=== PATIENT | female | born 1940 | race Caucasian/White ===

== ENCOUNTER → 2018-05-24 | Outpatient (CLI) | payer MEDICARE, BC ==
[2018-05-24 11:31] LABS: ABSOLUTE BASOPHILS 0.1 thou/uL (0.0-0.2); ABSOLUTE EOSINOPHILS 0.1 thou/uL (0.0-0.7); ABSOLUTE LYMPHOCYTES 2.2 thou/uL (0.8-5.3); ABSOLUTE MONOCYTES 0.4 thou/uL (0.0-1.2); ABSOLUTE NEUTROPHILS 4.1 thou/uL (1.6-8.1); BASOPHILS 1.5 %; EOSINOPHILS 1.8 %; HEMATOCRIT 45.7 % (37.0-47.0); HEMOGLOBIN 15.1 gm/dL (12.0-15.0); MCH 31.5 pg (26.0-34.0); MCHC 33.2 g/dL (28.0-37.0); MCV 94.9 fL (80.0-100.0); MONOCYTES 6.1 %; MPV 7.7 fl. (7.2-11.1); NUCLEATED RBCS 0 /100WBC; PLATELET COUNT* 257 thou/uL (150-400); POLYS 58.6 %; RBC 4.81 mil/uL (4.20-5.00); RDW-CV 13.1 % (10.5-14.5)
[2018-05-24 11:52] LABS: URINE BILIRUBIN NEGATIVE (Negative); URINE BLOOD 1+ (Negative); URINE CLARITY CLEAR; URINE COLOR YELLOW; URINE GLUCOSE-RANDOM NEGATIVE (Negative); URINE KETONES 1+ (Negative); URINE LEUKOCYTES-REFLEX TRACE (Negative); URINE PROTEIN NEGATIVE (Negative); URINE UROBILINOGEN 0.2 E.U./dl (0.2-1.0)
[2018-05-24 11:53] LABS: URINE NITRITE-REFLEX POSITIVE (Negative)
[2018-05-24 11:56] LABS: ALBUMIN 3.6 g/dL (3.4-5.0); ALKALINE PHOSPHATASE 55 U/L (46-116); ANION GAP 7 mmol/L (7-16); BUN 16 mg/dL (7-18); CALCIUM 10.1 mg/dL (8.5-10.1); CHLORIDE 106 mmol/L (98-107); CHOLESTEROL 175 mg/dL (<200); CO2 28 mmol/L (21-32); CREATININE 0.7 mg/dL (0.6-1.3); GLUCOSE 99 mg/dL (70-99); HDL CHOLESTEROL 82 mg/dL (>40); LDL CHOLESTEROL 73 mg/dL (<100); POTASSIUM 4.7 mmol/L (3.5-5.1); SERUM ASSESSMENT Clear; SGOT 27 U/L (15-37); SGPT 41 U/L (30-65); SODIUM 141 mmol/L (136-145); TC:HDL 2.1 Ratio (Not establshd); TOTAL BILIRUBIN 0.6 mg/dL (<0.1-1.0); TRIGLYCERIDE 101 mg/dL (<150); VLDL 20 mg/dL (<40)
[2018-05-24 12:08] LABS: SQUAMOUS 0-3 Few /LPF (0-3)
[2018-05-24 12:09] LABS: BACTERIA-REFLEX >30 Many /HPF (None Seen); CASTS None Seen /LPF (None Seen); CRYSTALS None Seen /LPF (None Seen); MUCUS 0-3 Light strn/LPF (None Seen); URINE RBC 0-2 Rare /HPF (0-2); URINE WBC-REFLEX 0-5 Rare /HPF (0-5)
== END ==
LOC: M.LAB 10:45
PROVIDERS: Internal Medicine
DX: E03.9 Hypothyroidism, unspecified (principal); E78.01 Familial hypercholesterolemia

== ENCOUNTER → 2018-08-31 | Outpatient (CLI) | payer MEDICARE, BC ==
[2018-08-31 14:28] LABS: SGOT 12 U/L (15-37); SGPT 14 U/L (30-65)
[2018-09-01 06:05] LABS: LDL (DIRECT) CHOL 67 mg/dL (0-99)
== END ==
LOC: M.LAB 13:43
PROVIDERS: Internal Medicine
DX: E78.01 Familial hypercholesterolemia (principal)

== ENCOUNTER → 2018-09-01 | Outpatient (CLI) | payer MEDICARE, BC ==
[2018-09-01 15:48] LABS: URINE BILIRUBIN NEGATIVE (Negative); URINE BLOOD 1+ (Negative); URINE CLARITY CLEAR; URINE COLOR YELLOW; URINE GLUCOSE-RANDOM NEGATIVE (Negative); URINE KETONES NEGATIVE (Negative); URINE LEUKOCYTES-REFLEX 1+ (Negative); URINE NITRITE-REFLEX NEGATIVE (Negative); URINE PROTEIN NEGATIVE (Negative); URINE SPECIFIC GRAVITY 1.025 (1.005-1.030); URINE UROBILINOGEN 0.2 E.U./dl (0.2-1.0)
[2018-09-01 15:57] LABS: BACTERIA-REFLEX >30 Many /HPF (None Seen); CASTS None Seen /LPF (None Seen); CRYSTALS None Seen /LPF (None Seen); MUCUS 4-6 Moderate strn/LPF (None Seen); SQUAMOUS 4-10 Moderate /LPF (0-3); URINE RBC 0-2 Rare /HPF (0-2); URINE WBC-REFLEX >25 Many /HPF (0-5)
== END ==
LOC: M.LAB 15:33
PROVIDERS: Internal Medicine
DX: N39.0 Urinary tract infection, site not specified (principal); E78.01 Familial hypercholesterolemia

== ENCOUNTER → 2018-09-30 | Outpatient (CLI) | payer MEDICARE, BC ==
[2018-09-30 14:48] LABS: URINE BILIRUBIN NEGATIVE (Negative); URINE BLOOD NEGATIVE (Negative); URINE CLARITY SL CLOUDY; URINE COLOR YELLOW; URINE GLUCOSE-RANDOM NEGATIVE (Negative); URINE KETONES NEGATIVE (Negative); URINE LEUKOCYTES-REFLEX NEGATIVE (Negative); URINE NITRITE-REFLEX NEGATIVE (Negative); URINE PROTEIN NEGATIVE (Negative); URINE SPECIFIC GRAVITY 1.025 (1.005-1.030); URINE UROBILINOGEN 0.2 E.U./dl (0.2-1.0)
[2018-09-30 14:57] LABS: BACTERIA-REFLEX >30 Many /HPF (None Seen); SQUAMOUS 0-3 Few /LPF (0-3); URINE RBC None Seen /HPF (0-2); URINE WBC-REFLEX >25 Many /HPF (0-5)
[2018-09-30 14:58] LABS: CASTS None Seen /LPF (None Seen); CRYSTALS None Seen /LPF (None Seen); MUCUS None Seen strn/LPF (None Seen)
== END ==
LOC: M.LAB 14:14
PROVIDERS: Internal Medicine
DX: N39.0 Urinary tract infection, site not specified (principal)

== ENCOUNTER → 2018-12-05 | Outpatient (CLI) | payer MEDICARE, BC ==
[2018-12-05 11:42] LABS: URINE BILIRUBIN NEGATIVE (Negative); URINE BLOOD TRACE (Negative); URINE CLARITY CLEAR; URINE COLOR YELLOW; URINE GLUCOSE-RANDOM NEGATIVE (Negative); URINE KETONES 1+ (Negative); URINE LEUKOCYTES-REFLEX NEGATIVE (Negative); URINE NITRITE-REFLEX NEGATIVE (Negative); URINE PROTEIN NEGATIVE (Negative); URINE SPECIFIC GRAVITY 1.025 (1.005-1.030); URINE UROBILINOGEN 0.2 E.U./dl (0.2-1.0)
[2018-12-05 12:20] LABS: CHOLESTEROL 173 mg/dL (<200); HDL CHOLESTEROL 84 mg/dL (>40); LDL CHOLESTEROL 71 mg/dL (<100); SERUM ASSESSMENT Clear; TC:HDL 2.1 Ratio (Not establshd); TRIGLYCERIDE 94 mg/dL (<150); VLDL 19 mg/dL (<40)
== END ==
LOC: M.LAB 11:20
PROVIDERS: Internal Medicine
DX: E78.01 Familial hypercholesterolemia (principal)

== ENCOUNTER 2018-12-07 14:59 | Observation (INO) | payer MEDICARE, BC ==
[~2018-12-07] VITALS: Ht 162.6 cm; Wt 63.5 kg
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
[2018-12-07 15:24] LABS: ABSOLUTE BASOPHILS 0.1 thou/uL (0.0-0.2); ABSOLUTE EOSINOPHILS 0.2 thou/uL (0.0-0.7); ABSOLUTE LYMPHOCYTES 3.4 thou/uL (0.8-5.3); ABSOLUTE MONOCYTES 0.6 thou/uL (0.0-1.2); ABSOLUTE NEUTROPHILS 4.3 thou/uL (1.6-8.1); BASOPHILS 1.1 %; EOSINOPHILS 2.4 %; HEMATOCRIT 46.4 % (37.0-47.0); HEMOGLOBIN 15.3 gm/dL (12.0-15.0); LYMPHOCYTES 39.7 %; MCH 30.7 pg (26.0-34.0); MCHC 32.9 g/dL (28.0-37.0); MCV 93.2 fL (80.0-100.0); MONOCYTES 6.6 %; NUCLEATED RBCS 0 /100WBC; PLATELET COUNT* 271 thou/uL (150-400); POLYS 50.2 %; RBC 4.98 mil/uL (4.20-5.00); WBC 8.5 thou/uL (4.0-11.0)
[2018-12-07 15:39] LABS: POC CA IONIZED 5.4 mg/dL (4.5-5.3); POC CREATININE 0.7 mg/dL (0.6-1.3); POC HEMOGLOBIN 15.6 g/dL (12.0-17.0); POC POTASSIUM 3.7 mmol/L (3.5-4.9)
[2018-12-07 15:42] LABS: PROTIME 10.2 Seconds (9.20-11.50)
[2018-12-07 15:46] LABS: ANION GAP 9 mmol/L (7-16); BUN 16 mg/dL (7-18); CALCIUM 10.4 mg/dL (8.5-10.1); CHLORIDE 104 mmol/L (98-107); CO2 27 mmol/L (21-32); CREATININE 0.8 mg/dL (0.6-1.3); GLUCOSE 117 mg/dL (70-99); POTASSIUM 3.8 mmol/L (3.5-5.1); SODIUM 140 mmol/L (136-145)
[2018-12-07 15:51] LABS: ALBUMIN 3.8 g/dL (3.4-5.0); ALKALINE PHOSPHATASE 70 U/L (46-116); NT-PRO BRAIN NAT PEPTIDE 234 pg/mL (<300); SGOT 22 U/L (15-37); SGPT 22 U/L (30-65); TOTAL BILIRUBIN 0.4 mg/dL (<0.1-1.0); TOTAL PROTEIN 7.3 g/dL (6.4-8.2); TROPONIN-I LEVEL <0.06 ng/mL (<0.06)
[2018-12-07 16:05] LABS: URINE BILIRUBIN NEGATIVE (Negative); URINE BLOOD TRACE (Negative); URINE CLARITY CLEAR; URINE COLOR YELLOW; URINE GLUCOSE-RANDOM NEGATIVE (Negative); URINE KETONES NEGATIVE (Negative); URINE LEUKOCYTES-REFLEX TRACE (Negative); URINE NITRITE-REFLEX NEGATIVE (Negative); URINE PROTEIN NEGATIVE (Negative); URINE SPECIFIC GRAVITY <= 1.005 (1.005-1.030); URINE UROBILINOGEN 0.2 E.U./dl (0.2-1.0)
[2018-12-07] MEDS ORDERED: ZOCOR20 MG PO (16:11)
[2018-12-07] MEDS ORDERED: CHILDREN'S ASPI81 M1 PO (16:11)
[2018-12-07] MEDS ORDERED: CALCIUM 600 +1 EAC1 PO (16:12)
[2018-12-07] MEDS ORDERED: SYNTHROID100 MC1 PO (16:12)
[2018-12-07] MEDS ORDERED: FOLBIC RF TABL1 EACH PO (16:12)
[2018-12-07] MEDS ORDERED: UNICOMPLEX M TA1 TA1 PO (16:12)
[2018-12-07] MEDS ORDERED: ESTRADIOL 1 MG T1 M1 PO (16:12)
[2018-12-07] MEDS ORDERED: CO Q-10100 MG PO (16:13)
[2018-12-07 16:16] LABS: MUCUS None Seen strn/LPF (None Seen); SQUAMOUS >10 Many /LPF (0-3)
[2018-12-07 16:17] LABS: CASTS None Seen /LPF (None Seen); CRYSTALS None Seen /LPF (None Seen); URINE RBC 0-2 Rare /HPF (0-2); URINE WBC-REFLEX 0-5 Rare /HPF (0-5)
[2018-12-07 20:00] VITALS: BP 145/60
[2018-12-07 21:00] VITALS: BP 108/51
[2018-12-07] MEDS ORDERED: CALCIUM500 MG PO (22:58)
[2018-12-07] MEDS ORDERED: VITAMIN D1000 UNI2 PO (23:01)
[2018-12-08] VITALS: BP 112/56
[2018-12-08 04:00] VITALS: BP 110/48
[2018-12-08 05:10] LABS: HEMATOCRIT 36.9 % (37.0-47.0); MCHC 33.3 g/dL (28.0-37.0); MCV 93.1 fL (80.0-100.0); MPV 7.8 fl. (7.2-11.1); RBC 3.97 mil/uL (4.20-5.00); RDW-CV 14.1 % (10.5-14.5); WBC 6.4 thou/uL (4.0-11.0)
[2018-12-08 05:14] LABS: HEMOGLOBIN 12.3 gm/dL (12.0-15.0)
[2018-12-08 05:27] LABS: ANION GAP 8 mmol/L (7-16); BUN 14 mg/dL (7-18); CALCIUM 9.2 mg/dL (8.5-10.1); CHLORIDE 110 mmol/L (98-107); CHOLESTEROL 141 mg/dL (<200); CO2 26 mmol/L (21-32); CREATININE 0.7 mg/dL (0.6-1.3); GLUCOSE 92 mg/dL (70-99); HDL CHOLESTEROL 68 mg/dL (>40); LDL CHOLESTEROL 55 mg/dL (<100); SODIUM 144 mmol/L (136-145); TC:HDL 2.1 Ratio (Not establshd); TRIGLYCERIDE 90 mg/dL (<150); VLDL 18 mg/dL (<40)
[2018-12-08 05:29] LABS: SERUM ASSESSMENT CLEAR
[2018-12-08] MEDS ORDERED: LIPITOR40 MG PO (09:14)
[2018-12-08 12:03] VITALS: BP 136/56
--- NOTE | 2018-12-08 15:16 | 2DMMODE ---
[place] [address] 2 D/M-MODE ECHOCARDIOGRAM Name: AJEMMANUEL J Room: [address] Darsahn#: [id number] Admission: 12/07/18 Attend Phys: Sierra Jerry MD Discharge: Date of : 36 Date of Service: 12/08/18 1516 Report #: [id number] THIS REPORT FOR: //name// APPROVED REPORT Study performed: 12/08/2018 11:23:22 EXAM: Comprehensive 2D, Doppler, and color-flow Echocardiogram Patient Location: In-Patient Room #: [facility], [facility] Status: routine BSA: 1.68 HR: 64 bpm BP: 110/48 mmHg Rhythm: NSR Other Information Study Quality: Good Indications CVA/TIA Echo Enhancing Agent Indication: Rule out Shunt Agent(s) / Amount(s) Used: Agitated Saline 10 cc 2D Dimensions IVSd: 9.24 (7-11mm) LVOT Diam: 18.08 (18-24mm) LVDd: 46.85 mm PWd: 9.49 (7-11mm) Ascending Ao: 28.18 (22-36mm) LVDs: 30.48 (25-40mm) Aortic Root: 29.98 mm Volumes Left Atrial Volume (Systole) LA ESV Index: 27.60 mL/m2 Aortic Valve LVOT Max P.60 mmHg LVOT Mean P.00 mmHg LVOT Max V: 1.07 m/s LVOT Mean V: 0.64 m/s LVOT V1 VTI: 23.04 cm AI [place]: 1.83 m/s2 AI PHT: 597.15 [place] [address] 2 D/M-MODE ECHOCARDIOGRAM Name: AJEMMANUEL Keaton Room: [address] M.R.#: [id number] Admission: 12/07/18 Attend Phys: Sierra Jerry MD Discharge: Date of : 36 Date of Service: 12/08/18 1516 Report #: [id number] Mitral Valve E/A Ratio: 0.81 MV Decel. Time: 255.23 ms MV E Max Michele.: 0.70 m/s MV PHT: 74.02 ms MVA (PHT): 2.97 cm2 TDI E/Lateral E': 8.75 E/Medial E': 11.67 Medial E' Michele.: 0.06 m/s Lateral E' Michele.: 0.08 m/s Pulmonary Valve PV Peak Michele.: 0.78 m/s PV Peak Gr.: 2.45 mmHg Tricuspid Valve RAP Estimate: 5.00 mmHg TR Peak Gr.: 14.92 mmHg RVSP: 20.00 mmHg PA Pressure: 20.00 mmHg Left Ventricle The left ventricle is normal size. There is mild left ventricular systolic synergy consistent with underlying bundle branch block. There is normal left ventricular wall thickness. Left ventricular systolic function is normal. LVEF is 55-60%. Grade I - abnormal relaxation pattern. Right Ventricle The right ventricle is normal size. The right ventricular systolic function is normal. Atria The left atrium size is normal. Interatrial septum is intact without evidence of ASD or PFO. The right atrium size is normal. Aortic Valve The aortic valve is normal in structure. Mild aortic regurgitation. There is no aortic valvular stenosis. Mitral Valve The mitral valve is normal in structure. Mild mitral regurgitation. No evidence of mitral valve stenosis. Tricuspid Valve The tricuspid valve [place] [address] 2 D/M-MODE ECHOCARDIOGRAM Name: EMMANUEL ROCHA Room: [address] Darshan#: [id number] Admission: 12/07/18 Attend Phys: Sierra Jerry MD Discharge: Date of : 36 Date of Service: 12/08/18 1516 Report #: [id number] regurgitation. No pulmonary hypertension. Pulmonic Valve The pulmonary valve is normal in structure. Mild pulmonic regurgitation. Great Vessels The aortic root is normal in size. IVC is normal in size and collapses >50% with inspiration. Pericardium There is no pericardial effusion. <Conclusion> The left ventricle is normal size. There is normal left ventricular wall thickness. Left ventricular systolic function is normal. LVEF is 55-60%. Grade I - abnormal relaxation pattern. There is mild left ventricular systolic synergy consistent with underlying bundle branch block. Interatrial septum is intact without evidence of ASD or PFO. Mild aortic regurgitation. Mild mitral regurgitation. Trace tricuspid regurgitation. No pulmonary hypertension. Mild pulmonic regurgitation. IVC is normal in size and collapses >50% with inspiration. <ELECTRONICALLY SIGNED> By: Wong Becerra MD, FACC 12/08/18 1516 1516 1516 Wong Becerra MD, FACC /INF
[2018-12-08 15:30] VITALS: BP 143/69
[2018-12-08 16:52] VITALS: BP 143/69
[2018-12-08 16:54] VITALS: BP 143/69
[2018-12-08 21:13] LABS: GLYCOHEMOGLOBIN (HGB A1C) 5.5 % (4.8-5.6)
== END 2018-12-08 17:45 | disposition home or self-care (01) ==
LOC: M.ERS 14:59 → M.2W 18:38 → M.TBA-ER 18:38 → M.2W 18:38
PROVIDERS: Personal Emergency Response Attendant; ADMIT Family Medicine
DX: G45.9 Transient cerebral ischemic attack, unspecified (principal); E03.9 Hypothyroidism, unspecified; Q24.5 Malformation of coronary vessels; E78.5 Hyperlipidemia, unspecified; Z79.82 Long term (current) use of aspirin; Z79.899 Other long term (current) drug therapy

== ENCOUNTER → 2019-03-10 | Outpatient (CLI) | payer MEDICARE, BC ==
[~2019-03-10] MED LIST: CALCIUM 600 +1 EAC1 PO; CALCIUM500 MG PO; CHILDREN'S ASPI81 M1 PO; CO Q-10100 MG PO; ESTRADIOL 1 MG T1 M1 PO; FOLBIC RF TABL1 EACH PO; LIPITOR40 MG PO; SYNTHROID100 MC1 PO; UNICOMPLEX M TA1 TA1 PO; VITAMIN D1000 UNI2 PO; ZOCOR20 MG PO
[2019-03-10 09:07] LABS: URINE BILIRUBIN NEGATIVE (Negative); URINE BLOOD TRACE (Negative); URINE CLARITY CLEAR; URINE COLOR YELLOW; URINE GLUCOSE-RANDOM NEGATIVE (Negative); URINE KETONES NEGATIVE (Negative); URINE LEUKOCYTES-REFLEX TRACE (Negative); URINE NITRITE-REFLEX NEGATIVE (Negative); URINE PROTEIN NEGATIVE (Negative); URINE UROBILINOGEN 0.2 E.U./dl (0.2-1.0)
[2019-03-10 09:10] LABS: SGOT 14 U/L (15-37); SGPT 20 U/L (30-65)
[2019-03-10 09:17] LABS: BACTERIA-REFLEX >30 Many /HPF (None Seen); CASTS None Seen /LPF (None Seen); CRYSTALS None Seen /LPF (None Seen); MUCUS 0-3 Light strn/LPF (None Seen); SQUAMOUS 0-3 Few /LPF (0-3); URINE RBC 0-2 Rare /HPF (0-2); URINE WBC-REFLEX 0-5 Rare /HPF (0-5)
[2019-03-10 17:10] LABS: LDL (DIRECT) CHOL 90 mg/dL (0-99)
== END ==
LOC: M.LAB 08:30
PROVIDERS: Internal Medicine
DX: E78.01 Familial hypercholesterolemia (principal); Z79.899 Other long term (current) drug therapy

== ENCOUNTER → 2019-04-06 | Outpatient (CLI) | payer MEDICARE, BC ==
[2019-04-06 14:33] LABS: URINE BILIRUBIN NEGATIVE (Negative); URINE BLOOD 3+ (Negative); URINE CLARITY CLEAR; URINE COLOR YELLOW; URINE GLUCOSE-RANDOM NEGATIVE (Negative); URINE KETONES NEGATIVE (Negative); URINE NITRITE-REFLEX NEGATIVE (Negative); URINE PROTEIN 2+ (Negative); URINE SPECIFIC GRAVITY 1.025 (1.005-1.030); URINE UROBILINOGEN 0.2 E.U./dl (0.2-1.0)
[2019-04-06 14:34] LABS: URINE LEUKOCYTES-REFLEX 3+ (Negative)
[2019-04-06 14:44] LABS: URINE WBC-REFLEX >25 Many /HPF (0-5)
[2019-04-06 14:52] LABS: SQUAMOUS >10 Many /LPF (0-3)
[2019-04-06 14:53] LABS: CASTS None Seen /LPF (None Seen); CRYSTALS None Seen /LPF (None Seen); URINE RBC 3-10 Few /HPF (0-2)
[2019-04-06 14:54] LABS: BACTERIA-REFLEX >30 Many /HPF (None Seen)
[2019-04-06 14:55] LABS: MUCUS 0-3 Light strn/LPF (None Seen); TRANSITIONAL EPITHEL CELL 0-3 Few /LPF (None Seen)
== END ==
LOC: M.LAB 13:55
PROVIDERS: Internal Medicine
DX: R30.0 Dysuria (principal)

== ENCOUNTER → 2019-05-31 | Outpatient (CLI) | payer MEDICARE, BC ==
[2019-05-31 10:58] LABS: URINE BILIRUBIN NEGATIVE (Negative); URINE BLOOD 1+ (Negative); URINE CLARITY CLEAR; URINE COLOR YELLOW; URINE GLUCOSE-RANDOM NEGATIVE (Negative); URINE KETONES NEGATIVE (Negative); URINE LEUKOCYTES-REFLEX TRACE (Negative); URINE NITRITE-REFLEX NEGATIVE (Negative); URINE PROTEIN NEGATIVE (Negative); URINE SPECIFIC GRAVITY 1.015 (1.005-1.030); URINE UROBILINOGEN 0.2 E.U./dl (0.2-1.0)
[2019-05-31 10:58] LABS: ABSOLUTE BASOPHILS 0.1 thou/uL (0.0-0.2); ABSOLUTE EOSINOPHILS 0.1 thou/uL (0.0-0.7); ABSOLUTE LYMPHOCYTES 2.2 thou/uL (0.8-5.3); ABSOLUTE MONOCYTES 0.5 thou/uL (0.0-1.2); BASOPHILS 1.3 %; EOSINOPHILS 1.8 %; HEMATOCRIT 43.3 % (37.0-47.0); HEMOGLOBIN 14.2 gm/dL (12.0-15.0); LYMPHOCYTES 28.1 %; MCH 30.2 pg (26.0-34.0); MCHC 32.8 g/dL (28.0-37.0); MCV 92.1 fL (80.0-100.0); MONOCYTES 6.9 %; MPV 7.9 fl. (7.2-11.1); NUCLEATED RBCS 0 /100WBC; PLATELET COUNT* 268 thou/uL (150-400); POLYS 61.9 %
[2019-05-31 11:07] LABS: SQUAMOUS 4-10 Moderate /LPF (0-3)
[2019-05-31 11:08] LABS: BACTERIA-REFLEX 1-9 Few /HPF (None Seen); CASTS None Seen /LPF (None Seen); CRYSTALS None Seen /LPF (None Seen); MUCUS 0-3 Light strn/LPF (None Seen); URINE RBC 3-10 Few /HPF (0-2); URINE WBC-REFLEX 6-15 Few /HPF (0-5)
[2019-05-31 11:16] LABS: ALBUMIN 3.4 g/dL (3.4-5.0); ALKALINE PHOSPHATASE 68 U/L (46-116); ANION GAP 6 mmol/L (7-16); BUN 23 mg/dL (7-18); CALCIUM 10.6 mg/dL (8.5-10.1); CHLORIDE 109 mmol/L (98-107); CHOLESTEROL 166 mg/dL (<200); CO2 29 mmol/L (21-32); CREATININE 0.8 mg/dL (0.6-1.3); GLUCOSE 104 mg/dL (70-99); HDL CHOLESTEROL 87 mg/dL (>40); LDL CHOLESTEROL 68 mg/dL (<100); POTASSIUM 4.4 mmol/L (3.5-5.1); SERUM ASSESSMENT Clear; SGOT 16 U/L (15-37); SGPT 22 U/L (30-65); SODIUM 144 mmol/L (136-145); TC:HDL 1.9 Ratio (Not establshd); TOTAL BILIRUBIN 0.6 mg/dL (<0.1-1.0); TOTAL PROTEIN 6.7 g/dL (6.4-8.2); TRIGLYCERIDE 55 mg/dL (<150); VLDL 11 mg/dL (<40)
== END ==
LOC: M.LAB 10:28
PROVIDERS: Internal Medicine
DX: E78.01 Familial hypercholesterolemia (principal); E03.9 Hypothyroidism, unspecified; K85.91 Acute pancreatitis with uninfected necrosis, unspecified; R82.998 Other abnormal findings in urine

== ENCOUNTER → 2019-07-13 | Outpatient (CLI) | payer MEDICARE, BC ==
[2019-07-13 11:10] LABS: URINE BILIRUBIN NEGATIVE (Negative); URINE BLOOD 3+ (Negative); URINE CLARITY CLEAR; URINE COLOR YELLOW; URINE GLUCOSE-RANDOM NEGATIVE (Negative); URINE KETONES NEGATIVE (Negative); URINE LEUKOCYTES-REFLEX NEGATIVE (Negative); URINE NITRITE-REFLEX NEGATIVE (Negative); URINE PROTEIN TRACE (Negative); URINE UROBILINOGEN 0.2 E.U./dl (0.2-1.0)
[2019-07-13 11:23] LABS: SQUAMOUS >10 Many /LPF (0-3)
[2019-07-13 11:24] LABS: BACTERIA-REFLEX 1-9 Few /HPF (None Seen); URINE RBC >20 Many /HPF (0-2)
[2019-07-13 11:25] LABS: CASTS None Seen /LPF (None Seen); CRYSTALS None Seen /LPF (None Seen); MUCUS >6 Heavy strn/LPF (None Seen); URINE WBC-REFLEX 0-5 Rare /HPF (0-5)
== END ==
LOC: M.LAB 10:44
PROVIDERS: Internal Medicine
DX: R31.9 Hematuria, unspecified (principal)

== ENCOUNTER → 2019-08-15 | Outpatient (CLI) | payer MEDICARE, BC ==
[2019-08-15 11:02] LABS: URINE BILIRUBIN NEGATIVE (Negative); URINE BLOOD 2+ (Negative); URINE CLARITY CLEAR; URINE COLOR YELLOW; URINE GLUCOSE-RANDOM NEGATIVE (Negative); URINE KETONES NEGATIVE (Negative); URINE NITRITE-REFLEX NEGATIVE (Negative); URINE PROTEIN TRACE (Negative); URINE SPECIFIC GRAVITY 1.015 (1.005-1.030); URINE UROBILINOGEN 0.2 E.U./dl (0.2-1.0)
[2019-08-15 11:03] LABS: URINE LEUKOCYTES-REFLEX 2+ (Negative)
[2019-08-15 11:10] LABS: CASTS None Seen /LPF (None Seen); CRYSTALS None Seen /LPF (None Seen); MUCUS 0-3 Light strn/LPF (None Seen); SQUAMOUS 4-10 Moderate /LPF (0-3); URINE RBC 3-10 Few /HPF (0-2); URINE WBC-REFLEX 6-15 Few /HPF (0-5)
== END ==
LOC: M.LAB 10:40
PROVIDERS: Internal Medicine
DX: R39.9 Unspecified symptoms and signs involving the genitourinary system (principal)

== ENCOUNTER → 2019-09-13 | Outpatient (CLI) | payer MEDICARE, BC ==
[2019-09-13 15:32] LABS: URINE BILIRUBIN NEGATIVE (Negative); URINE BLOOD 1+ (Negative); URINE CLARITY CLEAR; URINE COLOR YELLOW; URINE GLUCOSE-RANDOM NEGATIVE (Negative); URINE KETONES TRACE (Negative); URINE LEUKOCYTES NEGATIVE (Negative); URINE NITRITE NEGATIVE (Negative); URINE PROTEIN NEGATIVE (Negative); URINE UROBILINOGEN 0.2 E.U./dl (0.2-1.0)
[2019-09-13 15:38] LABS: SGOT 17 U/L (15-37); SGPT 17 U/L (30-65)
[2019-09-13 15:41] LABS: SQUAMOUS >10 Many /LPF (0-3)
[2019-09-13 15:42] LABS: URINE RBC >20 Many /HPF (0-2); URINE WBC 0-5 Rare /HPF (0-5)
[2019-09-13 15:43] LABS: MUCUS 0-3 Light strn/LPF (None Seen)
[2019-09-13 15:44] LABS: CASTS None Seen /LPF (None Seen); CRYSTALS None Seen /LPF (None Seen)
[2019-09-23 14:19] LABS: LDL (DIRECT) CHOL 67
== END ==
LOC: M.LAB 15:03
PROVIDERS: Internal Medicine
DX: R30.0 Dysuria (principal); E78.01 Familial hypercholesterolemia

== ENCOUNTER → 2019-10-16 | Outpatient (CLI) | payer MEDICARE, BC ==
[2019-10-16 15:01] LABS: URINE BILIRUBIN NEGATIVE (Negative); URINE BLOOD NEGATIVE (Negative); URINE CLARITY CLEAR; URINE COLOR YELLOW; URINE GLUCOSE-RANDOM NEGATIVE (Negative); URINE KETONES NEGATIVE (Negative); URINE LEUKOCYTES-REFLEX NEGATIVE (Negative); URINE NITRITE-REFLEX NEGATIVE (Negative); URINE PROTEIN NEGATIVE (Negative); URINE SPECIFIC GRAVITY 1.015 (1.005-1.030); URINE UROBILINOGEN 0.2 E.U./dl (0.2-1.0)
== END ==
LOC: M.LAB 14:38
PROVIDERS: Internal Medicine
DX: R30.0 Dysuria (principal)

== ENCOUNTER → 2019-11-10 | Outpatient (CLI) | payer MEDICARE, BC ==
[2019-11-10 10:39] LABS: URINE BILIRUBIN NEGATIVE (Negative); URINE BLOOD 2+ (Negative); URINE CLARITY CLEAR; URINE COLOR YELLOW; URINE GLUCOSE-RANDOM NEGATIVE (Negative); URINE KETONES NEGATIVE (Negative); URINE LEUKOCYTES-REFLEX TRACE (Negative); URINE NITRITE-REFLEX NEGATIVE (Negative); URINE PROTEIN TRACE (Negative); URINE SPECIFIC GRAVITY 1.025 (1.005-1.030); URINE UROBILINOGEN 0.2 E.U./dl (0.2-1.0)
[2019-11-10 11:00] LABS: CASTS None Seen /LPF (None Seen); CRYSTALS None Seen /LPF (None Seen); SQUAMOUS 0-3 Few /LPF (0-3); URINE RBC 0-2 Rare /HPF (0-2); URINE WBC-REFLEX 6-15 Few /HPF (0-5)
== END ==
LOC: M.LAB 09:46
PROVIDERS: Internal Medicine
DX: R30.0 Dysuria (principal)

== ENCOUNTER → 2019-12-14 | Outpatient (CLI) | payer MEDICARE, BC ==
[2019-12-14 16:50] LABS: URINE BILIRUBIN NEGATIVE (Negative); URINE BLOOD 2+ (Negative); URINE CLARITY SL CLOUDY; URINE COLOR YELLOW; URINE GLUCOSE-RANDOM NEGATIVE (Negative); URINE KETONES NEGATIVE (Negative); URINE LEUKOCYTES-REFLEX 1+ (Negative); URINE NITRITE-REFLEX NEGATIVE (Negative); URINE PROTEIN TRACE (Negative); URINE SPECIFIC GRAVITY 1.025 (1.005-1.030); URINE UROBILINOGEN 0.2 E.U./dl (0.2-1.0)
[2019-12-14 16:56] LABS: SQUAMOUS >10 Many /LPF (0-3)
[2019-12-14 16:57] LABS: ANION GAP 7 mmol/L (7-16); BUN 29 mg/dL (7-18); CALCIUM 9.6 mg/dL (8.5-10.1); CHLORIDE 107 mmol/L (98-107); CHOLESTEROL 183 mg/dL (<200); CO2 29 mmol/L (21-32); GLUCOSE 118 mg/dL (70-99); HDL CHOLESTEROL 88 mg/dL (>40); LDL CHOLESTEROL 71 mg/dL (<100); SERUM ASSESSMENT CLEAR; SGOT 17 U/L (15-37); SGPT 29 U/L (30-65); SODIUM 143 mmol/L (136-145); TC:HDL 2.1 Ratio (Not establshd); TRIGLYCERIDE 123 mg/dL (<150); VLDL 25 mg/dL (<40)
[2019-12-14 16:57] LABS: BACTERIA-REFLEX >30 Many /HPF (None Seen); CASTS None Seen /LPF (None Seen); CRYSTALS None Seen /LPF (None Seen); MUCUS None Seen strn/LPF (None Seen); URINE RBC 0-2 Rare /HPF (0-2); URINE WBC-REFLEX >25 Many /HPF (0-5)
== END ==
LOC: M.LAB 16:20
PROVIDERS: Internal Medicine
DX: E78.01 Familial hypercholesterolemia (principal); R30.0 Dysuria

== ENCOUNTER → 2020-02-12 | Outpatient (CLI) | payer MEDICARE, BC ==
[2020-02-12 14:41] LABS: URINE BILIRUBIN NEGATIVE (Negative); URINE BLOOD TRACE (Negative); URINE CLARITY SL CLOUDY; URINE COLOR YELLOW; URINE GLUCOSE-RANDOM NEGATIVE (Negative); URINE KETONES TRACE (Negative); URINE LEUKOCYTES-REFLEX TRACE (Negative); URINE NITRITE-REFLEX NEGATIVE (Negative); URINE PROTEIN NEGATIVE (Negative); URINE UROBILINOGEN 0.2 E.U./dl (0.2-1.0)
[2020-02-12 14:48] LABS: BACTERIA-REFLEX >30 Many /HPF (None Seen); CASTS None Seen /LPF (None Seen); SQUAMOUS 4-10 Moderate /LPF (0-3); URINE RBC 0-2 Rare /HPF (0-2); URINE WBC-REFLEX 6-15 Few /HPF (0-5)
[2020-02-12 14:50] LABS: CRYSTALS None Seen /LPF (None Seen)
== END ==
LOC: M.LAB 14:22
PROVIDERS: Internal Medicine
DX: M19.042 Primary osteoarthritis, left hand (principal); M81.0 Age-related osteoporosis without current pathological fracture; N39.0 Urinary tract infection, site not specified

== ENCOUNTER 2020-07-27 15:33 | Observation (INO) | payer MEDICARE, BC ==
[~2020-07-27] VITALS: Ht 162.6 cm; Wt 61.2 kg
[2020-07-27 15:39] VITALS: BP 175/73
[2020-07-27] MEDS ORDERED: SIMVASTATIN80 MG PO (15:43)
[2020-07-27] MEDS ORDERED: FLOMAX0.4 MG PO (15:43)
[2020-07-27 15:54] LABS: ABSOLUTE BASOPHILS 0.1 thou/uL (0.0-0.2); ABSOLUTE EOSINOPHILS 0.3 thou/uL (0.0-0.7); ABSOLUTE LYMPHOCYTES 3.3 thou/uL (0.8-5.3); ABSOLUTE MONOCYTES 0.6 thou/uL (0.0-1.2); BASOPHILS 1.4 %; EOSINOPHILS 2.7 %; HEMATOCRIT 45.7 % (37.0-47.0); HEMOGLOBIN 15.3 gm/dL (12.0-15.0); LYMPHOCYTES 32.1 %; MCH 31.4 pg (26.0-34.0); MCHC 33.6 g/dL (28.0-37.0); MCV 93.5 fL (80.0-100.0); MONOCYTES 5.8 %; MPV 8.2 fl. (7.2-11.1); NUCLEATED RBCS 0 /100WBC; PLATELET COUNT* 255 thou/uL (150-400); RBC 4.88 mil/uL (4.20-5.00); RDW-CV 13.3 % (10.5-14.5); WBC 10.4 thou/uL (4.0-11.0)
[2020-07-27 16:03] LABS: CALCIUM 9.3 mg/dL (8.5-10.1); CREATININE 0.8 mg/dL (0.6-1.3); POTASSIUM 3.3 mmol/L (3.5-5.1)
[2020-07-27 16:08] LABS: ALBUMIN 3.7 g/dL (3.4-5.0); APTT 22.8 Seconds (25.0-31.3); PROTIME 10.2 Seconds (9.20-11.50); TOTAL BILIRUBIN 0.3 mg/dL (<0.1-1.0)
[2020-07-27 16:48] LABS: URINE BILIRUBIN NEGATIVE (Negative); URINE BLOOD 2+ (Negative); URINE CLARITY SL CLOUDY; URINE COLOR YELLOW; URINE GLUCOSE-RANDOM NEGATIVE (Negative); URINE KETONES NEGATIVE (Negative); URINE LEUKOCYTES-REFLEX 3+ (Negative); URINE NITRITE-REFLEX NEGATIVE (Negative); URINE PROTEIN NEGATIVE (Negative); URINE SPECIFIC GRAVITY 1.015 (1.005-1.030); URINE UROBILINOGEN 0.2 E.U./dl (0.2-1.0)
[2020-07-27 16:55] LABS: SQUAMOUS 4-10 Moderate /LPF (0-3); URINE WBC-REFLEX >25 Many /HPF (0-5); WBC CLUMPS Moderate (None Seen)
[2020-07-27 16:56] LABS: CASTS None Seen /LPF (None Seen); CRYSTALS None Seen /LPF (None Seen); MUCUS 4-6 Moderate strn/LPF (None Seen)
[2020-07-27 18:33] VITALS: BP 174/75
[2020-07-27 18:47] VITALS: BP 171/73
[2020-07-27 20:00] VITALS: BP 156/72
--- NOTE | 2020-07-27 20:00 | NUR ---
RECEIVED REPORT AND ASSUMED CARE OF PT, ASSESSMENT COMPLETED. NEURO RETURNED TO BASELINE. GAIT STEADY UP AMBULATING AROUND ROOM. PT SPOKE AT LENGTH ABOUT IN LTC AND QUARANTINE, TAKING CARE OF DGT WITH DEPRESSION, ANOTHER DGT AND SON-IN-LAW FROM HEART ATTACKS. STAYS SHE IS TIRED AND COULD BE IN HER OWN BED RESTING. DISCUSSED JOINING A SUPPORT GROUP. TELEMETRY ON SHOWING SR WITH 1ST AVB AND BBB. WILL CONT TO MONITOR AND ASSIST NEEDED.
[2020-07-28] VITALS: BP 116/56
[2020-07-28 04:00] VITALS: BP 135/52
[2020-07-28 05:36] LABS: CHOLESTEROL 130 mg/dL (<200); HDL CHOLESTEROL 67 mg/dL (>40); LDL CHOLESTEROL 48 mg/dL (<100); TC:HDL 1.9 Ratio (Not establshd); TRIGLYCERIDE 77 mg/dL (<150); VLDL 15 mg/dL (<40)
[2020-07-28 05:38] LABS: SERUM ASSESSMENT Clear
--- NOTE | 2020-07-28 06:33 | NUR ---
AWAKE MOST ON NIGHT. ANXIOUS BUT TIRED. GAIT STEADY ABOUT ROOM. TELEMETRY CONT TO SHOW SR/SB WITH 1ST AVB AND BBB. NO CHANGE IN ASSESSMENT. HS GOALS OF REST AND SAFETY ACHIEVED. HOURLY ROUNDING OBSERVED.
[2020-07-28 08:00] VITALS: BP 153/76
[2020-07-28] MEDS ORDERED: ADULT LOW DOSE81 MG PO (10:45)
[2020-07-28] MEDS ORDERED: CIPRO500 M1 PO (10:47)
[2020-07-28 11:26] VITALS: BP 153/76
--- NOTE | 2020-07-28 12:37 | NUR ---
PT DISCHARGED HOME NO IV WAS THERE MAINTENANCE MANAGER DISCONTINUED NO QUESTIONS OR CONCERNS
[2020-07-29 05:06] LABS: GLYCOHEMOGLOBIN (HGB A1C) 5.3 % (4.8-5.6)
--- NOTE | 2020-07-29 09:53 | EKG ---
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
== END 2020-07-28 12:38 | disposition home or self-care (01) ==
LOC: M.ERS 15:33 → M.TBA-ER 17:37 → M.2W 18:35
PROVIDERS: Family Medicine; ADMIT Internal Medicine; ATTEND Internal Medicine
DX: R47.89 Other speech disturbances (principal); I10 Essential (primary) hypertension; E03.9 Hypothyroidism, unspecified; N39.0 Urinary tract infection, site not specified; G43.809 Other migraine, not intractable, without status migrainosus; R41.82 Altered mental status, unspecified; Z79.82 Long term (current) use of aspirin; Z79.899 Other long term (current) drug therapy; Z20.828 Contact with and (suspected) exposure to other viral communicable diseases